=== PATIENT | female | born 1960 | race Caucasian/White ===

== ENCOUNTER → 2016-11-28 | Outpatient (CLI) | payer BC ==
[~2016-11-28] MED LIST: FLUC150T PO; TRZVC PV
[2016-12-03 13:08] LABS: 18KDIGG BAND NONREACTIVE (NONREACTIVE); 23KDIGG BAND NONREACTIVE (NONREACTIVE); 23KDIGM BAND REACTIVE (NONREACTIVE); 28KDIGG BAND NONREACTIVE (NONREACTIVE); 30KDIGG BAND NONREACTIVE (NONREACTIVE); 39KDIGG BAND NONREACTIVE (NONREACTIVE); 39KDIGM BAND NONREACTIVE (NONREACTIVE); 41KDIGG BAND REACTIVE (NONREACTIVE); 41KDIGM BAND REACTIVE (NONREACTIVE); 45KDIGG BAND NONREACTIVE (NONREACTIVE); 58KDIGG BAND NONREACTIVE (NONREACTIVE); 66KDIGG BAND NONREACTIVE (NONREACTIVE); 93KDIGG BAND NONREACTIVE (NONREACTIVE)
== END | disposition home or self-care (01) ==
LOC: C.LAB1850 15:13
PROVIDERS: ATTEND Family Medicine
DX: R53.83 Other fatigue (principal)

== ENCOUNTER → 2017-01-22 | Outpatient (CLI) | payer BC ==
[~2017-01-22] MED LIST changes: +GADAVIST IV PRN
--- NOTE | 2017-01-22 14:36 | DIAGNOSTIC IMAGING REPORT ---
BRAIN COMBO FOR MS CLINICAL HISTORY: Abnormal MRI. Memory loss. Numbness. Evaluate for multiple sclerosis. COMPARISON STUDY: No previous studies for comparison. TECHNIQUE: Utilizing 1.5 Dunia magnet, multiplanar, multi echo imaging of the brain was performed pre and postcontrast administration according to multiple sclerosis protocol. Injection of 6 cc of Gadavist IV was uneventful. FINDINGS: There are no areas of restricted diffusion. No acute intracranial hemorrhage, midline shift or mass effect is present. Brain volume is normal. Ventricular system is normal. The basilar cisterns are patent. There are no extra-axial collections. Flow-voids for the major intracranial vessels are present. There are no intracranial masses or areas of pathologic enhancement. No areas of parenchymal signal abnormality are identified. Orbits and sinuses are unremarkable. IMPRESSION: Unremarkable MRI of the brain. Electronically signed by: Mukul Alicea M.D. 01/22/2017 2:35 PM Dictated Date/Time: 01/22/2017 2:28 PM
--- NOTE | 2017-01-22 14:42 | DIAGNOSTIC IMAGING REPORT ---
MRI OF THE THORACIC SPINE COMBO CLINICAL HISTORY: Lower extremity numbness. Cramping of the feet. Abnormal MRI of the cervical spine. COMPARISON STUDY: MRI of the cervical spine dated 11/01/2016 TECHNIQUE: MRI of the thoracic spine is performed utilizing various T1 and T2-weighted sequences in the axial and sagittal planes. Contrast-enhanced sequences are acquired following the IV administration of 6 cc of Gadavist. FINDINGS: Vertebral body height and alignment are maintained throughout the thoracic spine. Normal marrow signal intensity is preserved throughout the visualized bony structures. A small hemangioma is present in the body of T10. Small anterior osteophytes are seen at several levels. The spinous processes appear intact. Mild degenerative disc desiccation is seen. No disc herniation is identified and there is no acquired compromise of the central canal. Small posterior disc osteophyte complexes are seen at T1-T2, T2-T3, T6-T7, and T7-T8. This abuts the ventral cord at T6-T7. No significant neural foraminal stenosis is seen throughout the thoracic spine. The thoracic spinal cord is normal in morphology and signal intensity. The conus medullaris terminates at the level of T12-L1. No abnormal cord enhancement is identified on the postcontrast images. No signal abnormality is identified in the upper thoracic cord at the site questioned on the MRI of the cervical spine dated 11/01/2016. The paraspinous soft tissues are within normal limits. A subcentimeter cyst is noted in the upper pole of the left kidney. A 10 mm T2 hyperintense lesion in the spleen is of indeterminant but doubtful significance. IMPRESSION: 1. The thoracic spinal cord is normal in morphology and signal intensity. There is no lesion seen in the upper thoracic cord in the region questioned on the MRI of the cervical spine dated 11/01/2016. 2. Mild degenerative change as above. A posterior disc osteophyte complex at T6-T7 abuts the ventral cord. There is no significant acquired compromise of the central canal. 3. No destructive bony process is identified. Dictated: 01/22/2017 2:20 PM Transcribed: 01/22/2017 2:42 PM [place] Electronically signed by: Ryan Colon M.D. 01/22/2017 2:47 PM Dictated Date/Time: 01/22/2017 2:20 PM
== END | disposition home or self-care (01) ==
LOC: C.MRIBC 12:44
PROVIDERS: ATTEND Psychiatry & Neurology Neurology
DX: R41.3 Other amnesia (principal); R93.8 Abnormal findings on diagnostic imaging of other specified body structures; R25.2 Cramp and spasm; R20.0 Anesthesia of skin